=== PATIENT | female | born 1950 | race Caucasian/White ===

== ENCOUNTER 2025-09-08 09:39 | Outpatient (CLI) | payer MEDICARE | END 2025-09-08 09:40 | disposition home or self-care (01) | LOC: CSHSLEEP 09:39 | PROVIDERS: ATTEND Student in an Organized Health Care Education/Training Program | DX: G47.33 Obstructive sleep apnea (adult) (pediatric) (principal); R53.83 Other fatigue; R41.89 Other symptoms and signs involving cognitive functions and awareness; F41.9 Anxiety disorder, unspecified; E66.9 Obesity, unspecified; Z68.36 Body mass index [BMI] 36.0-36.9, adult; R06.83 Snoring | CPT/HCPCS: 95810 ==